=== PATIENT | female | born 1985 ===

== ENCOUNTER 2017-10-09 20:01 | Emergency (ER) | payer OTHER ==
[2017-10-09 20:01] VITALS: O2SAT 99
[2017-10-09] MEDS ORDERED: LIDOCAINE HCL 1% MPF SOL INFIL ONE (20:20)
[2017-10-09] MEDS ORDERED: LIDOCAINE HCL 1% MPF SOL ONE (20:28)
[2017-10-09] MEDS ORDERED: TDAP VACCINE 0.5 ML SUS IM ONE ×2 (20:47)
[2017-10-09 21:58] VITALS: BP 126/85; PULSE 80; RESP 16; TEMP 97.3
== END 2017-10-09 21:20 | disposition home or self-care (01) ==
LOC: ED 20:01
DX: S61.215A Laceration without foreign body of left ring finger without damage to nail, initial encounter (principal); W25.XXXA Contact with sharp glass, initial encounter
CPT/HCPCS: 12001; 90715; 99282; J2001